=== PATIENT | female | born 1955 | race Caucasian/White ===

== ENCOUNTER 2020-12-23 16:36 | Outpatient (CLI) | payer MEDICARE, SELFPAY ==
--- NOTE | ~2020-12-23 | MM_ITS ---
EXAMINATION: MM screening cheyrl BI w kera HISTORY: Screening TECHNIQUE: Craniocaudal and mediolateral oblique 3-D tomosynthesis images were obtained and synthetic 2-D images were generated. CAD analysis was submitted and interpreted. COMPARISON: No prior mammogram is available for comparison at this institution. BREAST PARENCHYMAL COMPOSITION: Comparison to multiple prior studies sequentially, with oldest review ed study dated 06/24/2014. FINDINGS: There are developing asymmetries in the medial and lateral aspect of the right breast on CC view. The left breast is stable without evidence for malignancy. IMPRESSION: 1. Developing right breast asymmetries. 2. Additional mammographic views and possible breast ultrasound are recommended. BI-RADS Category 0: Incomplete: Needs additional imaging evaluation. Reviewed, dictated and finalized at location A. IMPRESSION: 1. Developing right breast asymmetries. 2. Additional mammographic views and possible breast ultrasound are recommended . BI-RADS Category 0: Incomplete: Needs additional imaging evaluation.
== END 2020-12-23 16:37 | disposition home or self-care (01) ==
PROVIDERS: PCP Internal Medicine; Visit Provider Internal Medicine
DX: Z12.31 Encounter for screening mammogram for malignant neoplasm of breast (principal); R92.8 Other abnormal and inconclusive findings on diagnostic imaging of breast
CPT/HCPCS: 77063; 77067

== ENCOUNTER 2021-01-03 12:15 | Outpatient (CLI) | payer MEDICARE, SELFPAY ==
--- NOTE | ~2021-01-03 | MMUS_ITS ---
EXAMINATION: MM diagnostic mammo unilat RT, US breast RT limited HISTORY: Right breast asymmetries on screening mammogram TECHNIQUE: Additional 3-D tomosynthesis images of the right breast were performed and synthetic 2-D i mages were generated. CAD analysis was submitted and interpreted. High resolution limited right breas t ultrasound was performed. COMPARISON: 12/23/2020, 09/24/2019, 09/12/2018 FINDINGS: MAMMOGRAPHIC FINDINGS: There is a return to baseline fibroglandular appearance with spot compression views of the right ethan st. No suspicious mass, calcification, or architectural distortion are identified. ULTRASOUND: There is no evidence of focal abnormal solid or cystic mass in the vicinity of the mammographic findi ngs in question. IMPRESSION: 1. No mammographic or sonographic evidence of malignancy. 2. Recommend routine screening mammography in one year. BI-RADS Category 1: Negative Reviewed, dictated and finalized at location A. IMPRESSION: 1. No mammographic or sonographic evidence of malignancy. 2. Recommend routine screening mammography in one year. BI-RADS Category 1: Negative
== END 2021-01-03 12:16 | disposition home or self-care (01) ==
LOC: ANHIMG 12:20
PROVIDERS: PCP Internal Medicine; Visit Provider Internal Medicine
DX: R92.8 Other abnormal and inconclusive findings on diagnostic imaging of breast (principal)
CPT/HCPCS: 76642; 77065

== ENCOUNTER 2022-02-28 09:37 | Outpatient (CLI) | payer MEDICARE, SELFPAY ==
--- NOTE | ~2022-02-28 | MM_ITS ---
EXAMINATION: MM screening cheryl BI w kera HISTORY: Screening mammogram TECHNIQUE: Craniocaudal and mediolateral oblique 3-D tomosynthesis images were obtained and synthetic 2-D images were generated. CAD analysis was submitted and interpreted. COMPARISON: 01/03/2021 diagnostic right mammogram and limited right breast ultrasound examination 12/23/2020, 09/24/2019 bilateral screening mammogram examinations BREAST PARENCHYMAL COMPOSITION: The breasts are heterogeneously dense, which may obscure small masses . FINDINGS: There is no evidence of suspicious mass, calcification, or architectural distortion to sugg est malignancy in either breast. There has been no suspicious interval change. IMPRESSION: 1. No mammographic evidence of malignancy. 2. Recommend routine screening mammography in one year. BI-RADS Category 1: Negative Reviewed, dictated and finalized at location A.
--- NOTE | ~2022-02-28 | DEXA_ITS ---
Bone Density Report Name: WILLIAM ISAACS Age: 67 Sex: Female Ethnicity: White Date of : 1955 Indication: osteopenia; prior fracture; postmenopausal Referring Provider: VICENTE, ALEKSANDAR Meléndez Study: Bone densitometry was performed. Exam Date: February 28, 2022 Accession number: [id number] Bone Density: Region BMD T-score Z-score Classification AP Spine(L1-L4) 0.937 -1.0 0.9 Normal Femoral Neck (Left) 0.675 -1.6 0.1 Osteopenia Total Hip (Left) 0.841 -0.8 0.5 Normal Femoral Neck (Right) 0.686 -1.5 0.2 Osteopenia Total Hip (Right) 0.832 -0.9 0.4 Normal Total Hip Mean 0.837 -0.9 0.5 Normal World Health Organization criteria for BMD impression classify patients as: Normal (T-score at or above -1.0), Osteopenia (T-score between -1.0 and -2.5), or Osteoporosis (T-score at or below -2.5). 10-year Fracture Risk(1): Major Osteoporotic Fracture 15% Hip Fracture 1.8% Reported Risk Factors: [place] (), Neck BMD=0.675, BMI=27.3, previous fracture (1) FRAX(R) Version 3.08. Fracture probability calculated for an untreated patient. Fracture probability may be lower if the patient has received treatment. Previous Exams: Region Exam Age BMD T-score BMD Change BMD Change Date g/cm2 vs Baseline vs Previous AP Spine (L1-L4) 02/28/2022 67 0.937 -1.0 0.019 (2.1%) 0.019 (2.1%) 09/12/2018 63 0.918 -1.2 Total Hip(Left) 02/28/2022 67 0.841 -0.8 0.008 (0.9%) 0.008 (0.9%) 09/12/2018 63 0.833 -0.9 Total Hip(Right) 02/28/2022 67 0.832 -0.9 -0.005 (-0.6%) -0.005 (-0.6%) 09/12/2018 63 0.838 -0.9 *Denotes significance at 95% confidence level, LSC for AP Spine = 0.022 g/cm2, LSC for Total Hip = 0.027 g/cm2 Clinical Information Provided by Patient: Has had a low trauma fracture Has used the following medications: Vitamin D, Calcium Patient maximum height was 60.5 Menopause Age: 50 Onset of menses at age 12 Number of children 2 Impression: The patient has low bone mass, based on the Left Femoral Neck T-score. The patient has an estimated ten-year risk of hip fracture of 1.8% and an estimated ten-year risk of major fracture of 15%, based on the WHO FRAX algorithm. The patient has risk factors, including: previous fracture. No significant bone loss was observed. Discussion: BONE DENSITY IS LOW AT ONE OR MORE SKELETAL SITES. This patient's lowest T-score is low at one or more skeletal sites. It meets the World H
== END 2022-02-28 09:38 | disposition home or self-care (01) ==
PROVIDERS: PCP Internal Medicine; Visit Provider Internal Medicine
DX: Z12.31 Encounter for screening mammogram for malignant neoplasm of breast (principal); M85.88 Other specified disorders of bone density and structure, other site; M85.852 Other specified disorders of bone density and structure, left thigh; M85.851 Other specified disorders of bone density and structure, right thigh
CPT/HCPCS: 77063; 77067; 77080

== ENCOUNTER 2023-06-15 07:30 | Outpatient (CLI) | payer MEDICARE, SELFPAY ==
--- NOTE | ~2023-06-15 | MM_ITS ---
EXAMINATION: MM screening cheryl BI w kera HISTORY: Screening mammogram TECHNIQUE: Craniocaudal and mediolateral oblique 3-D tomosynthesis images were obtained and synthetic 2-D images were generated. CAD analysis was submitted and interpreted. COMPARISON: 02/24/2022 bilateral screening mammogram 01/03/2021 diagnostic right mammogram and limited right breast ultrasound 12/23/2020, 09/24/2019 bilateral screening mammogram examinations BREAST PARENCHYMAL COMPOSITION: The breasts are heterogeneously dense, which may obscure small masses . FINDINGS: There is no evidence of suspicious mass, calcification, or architectural distortion to sugg est malignancy in either breast. There has been no suspicious interval change. IMPRESSION: 1. No mammographic evidence of malignancy. 2. Recommend routine screening mammography in one year. BI-RADS Category 1: Negative Reviewed, dictated and finalized at location A.
== END 2023-06-15 07:31 | disposition home or self-care (01) ==
PROVIDERS: PCP Internal Medicine
DX: Z12.31 Encounter for screening mammogram for malignant neoplasm of breast (principal)
CPT/HCPCS: 77063; 77067

== ENCOUNTER 2024-09-01 09:34 | Outpatient (CLI) | payer MEDICARE, SELFPAY ==
--- NOTE | ~2024-09-01 | MM_ITS ---
EXAMINATION: MM screening cheryl BI w kera HISTORY: Screening TECHNIQUE: Craniocaudal and mediolateral oblique 3-D tomosynthesis images were obtained and synthetic 2-D images were generated. CAD analysis was submitted and interpreted. COMPARISON: Comparison to multiple prior studies sequentially, with oldest reviewed study dated 03/2018. BREAST PARENCHYMAL COMPOSITION: Dense: The breasts are heterogeneously dense, which may obscure small masses FINDINGS: There is no evidence of suspicious mass, calcification, or architectural distortion to sugg est malignancy in either breast. There has been no suspicious interval change. IMPRESSION: 1. No mammographic evidence of malignancy. 2. Recommend routine screening mammography in one year. BI-RADS Category 1: Negative Reviewed, dictated and finalized at location B. 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
== END 2024-09-01 09:35 | disposition home or self-care (01) ==
LOC: ANHIMG 09:39
PROVIDERS: PCP Internal Medicine
DX: Z12.31 Encounter for screening mammogram for malignant neoplasm of breast (principal)
CPT/HCPCS: 77063; 77067

== ENCOUNTER 2025-07-14 10:36 | Outpatient (CLI) | payer MEDICARE, SELFPAY ==
--- NOTE | ~2025-07-14 | DEXA_ITS ---
Bone Density Report Name: WILLIAM ISAACS Age: 70 Sex: Female Ethnicity: White Date of : 1955 Indication: postmenopausal; screening for osteoporosis; Referring Provider: VICENTE, ALEKSANDAR Meléndez Study: Bone densitometry was performed. Exam Date: July 14, 2025 Accession number: [id number] Bone Density: Region BMD T-score Z-score Classification AP Spine(L1-L4) 0.932 -1.0 1.1 Normal Femoral Neck (Left) 0.661 -1.7 0.1 Osteopenia Total Hip (Left) 0.816 -1.0 0.5 Normal Femoral Neck (Right) 0.652 -1.8 0.0 Osteopenia Total Hip (Right) 0.831 -0.9 0.6 Normal Total Hip Mean 0.823 -1.0 0.6 Normal World Health Organization criteria for BMD impression classify patients as: Normal (T-score at or above -1.0), Osteopenia (T-score between -1.0 and -2.5), or Osteoporosis (T-score at or below -2.5). 10-year Fracture Risk(1): Major Osteoporotic Fracture 11% Hip Fracture 1.8% Reported Risk Factors: [place] (), Neck BMD=0.652, BMI=27.3 (1) FRAX(R) Version 3.08. Fracture probability calculated for an untreated patient. Fracture probability may be lower if the patient has received treatment. Previous Exams: Region Exam Age BMD T-score BMD Change BMD Change Date g/cm2 vs Baseline vs Previous AP Spine (L1-L4) 07/14/2025 70 0.932 -1.0 0.015 (1.6%) -0.005 (-0.5%) 02/28/2022 67 0.937 -1.0 0.019 (2.1%) 0.019 (2.1%) 09/12/2018 63 0.918 -1.2 Total Hip(Left) 07/14/2025 70 0.816 -1.0 -0.017 (-2.1%) -0.025 (-3.0%) 02/28/2022 67 0.841 -0.8 0.008 (0.9%) 0.008 (0.9%) 09/12/2018 63 0.833 -0.9 Total Hip(Right) 07/14/2025 70 0.831 -0.9 -0.007 (-0.8%) -0.002 (-0.2%) 02/28/2022 67 0.832 -0.9 -0.005 (-0.6%) -0.005 (-0.6%) 09/12/2018 63 0.838 -0.9 *Denotes significance at 95% confidence level, LSC for AP Spine = 0.022 g/cm2, LSC for Total Hip = 0.027 g/cm2 Impression: The patient has low bone mass, based on the Right Femoral Neck T-score. The patient has an estimated ten-year risk of hip fracture of 1.8% and an estimated ten-year risk of major fracture of 11%, based on the WHO FRAX algorithm. No significant bone loss was observed. Discussion: BONE DENSITY IS LOW AT ONE OR MORE SKELETAL SITES. This patient's lowest T-score is low at one or more skeletal sites. It meets the World Health Organization's (WHO) criteria for ?low bone mass? (T-score between -1.0 and -2.5). The patient's 10-year risk of fracture as calculated by FRAX is less than the threshold where pharmacological therapy is recommended by the National Osteoporosis Foundation (NOF). However, all treatment decisions require clinical judgment and consideration of individual patient factors, including patient preferences, comorbidities, previous drug use, risk factors not captured in the FRAX model (e.g., frailty, falls, vitamin D deficiency, increased bone turnover, interval significant decline in bone density) and possible under or overestimation of fracture risk by FRAX. The patient should follow a healthful lifestyle (good nutrition with adequate calcium and vitamin D, and appropriate weight-bearing exercise). Follow-Up: Consider repeating this study in 2 to 3 years to reassess this patient's status, or sooner if there is some new clinical indication. Reported by: CLOVER on 07/14/2025 11:17:00 AM. Reviewed, dictated and finalized at location A.
--- OUTSIDE RECORDS SUMMARY | 2025-07-14 11:37 | XMS_ITS | Clinical Summary ---
Author Organization [facility] Address [address] [place] [address] Care Team Providers Care Correctional Security Officer Name Role Phone Brandin Torres MD Primary Care Provider [phone] Allergies Active Allergy Reactions Criticality Noted Date Comments Iodine Unknown 09/23/2022 Molds & Smuts Rash,Swelling Low 09/23/2022 Reaction: swelling, rash, Nitrofurantoin Unknown 09/23/2022 Patient states hands and feet went numb Shellfish-Derived Products Unknown 2 Sulfa Antibiotics Unknown 09/23/2022 Medications hydroCHLOROthia zide (HYDRODIURIL) 25 MG tablet Take 1 tablet by mouth daily. 08/14/2022 Active metoprolol succinate ER (TOPROL-XL) 50 MG 24 hr tablet Take 1 tablet by mouth daily. 03/05/2012 Active valACYclovir (VALTREX) 500 MG tablet Take 500 mg by mouth 2 (two) times daily. Active omeprazole (PRILOSEC) 20 MG capsule Take 20 mg by mouth daily. Active traZODone (DESYREL) 50 MG tablet Take 25 mg by mouth nightly at bedtime. Active B complex-C Cap capsule Take 1 capsule by mouth daily. Active Pyridoxine HCl (B-6) 100 MG Tab Take 100 mg by mouth daily. Active vitamin D3, cholecalciferol , 1000 UNIT Tab tablet Take 1,000 Units by mouth daily. Active [place]-3 Fatty Acids (FISH OIL) 500 MG capsule Take 1,000 mg by mouth daily. Active vitamin C (ASCORBIC ACID) 500 MG tablet Take 500 mg by mouth daily. Active vitamin E 180 MG (400 UNIT) capsule Take 400 Units by mouth daily. Active calcium carb-cholecalci ferol (CALTRATE 600+D) 600-20 MG-MCG tablet Take 1 tablet by mouth daily. Active biotin 300 MCG Tab Take by mouth daily. Active Social History Tobacco Use Types Packs/Day Years Used Date Smoking Tobacco: Never Smokeless Tobacco: Never Tobacco Cessation:Counseling Given: Not Answered Alcohol Use Standard Drinks/Week Comments Not Currently 0 (1 standard drink = 0.6 oz pur e alcohol) Comments Unknown Sex and Gender Information Value Date Recorded Sex Assigned at Not on file Legal Sex Female 7:27 PM CDT Gender Identity Not on file Sexual Orientation Not on file Last Filed Vital Signs Vital Sign Reading Time Taken Comments Blood Pressure 143/87 09/23/2022 9:22 PM HOUSE SUPERVISOR Pulse 73 09/23/2022 9:22 PM HOUSE SUPERVISOR Temperature 36.9 C (98.4 F) 09/23/2022 6:25 PM HOUSE SUPERVISOR Respiratory Rate 16 09/23/2022 9:22 PM HOUSE SUPERVISOR Oxygen Saturation 97% 09/23/2022 9:22 PM HOUSE SUPERVISOR Inhaled Oxygen Concentration - - Weight 63.5 kg (140 lb) 09/23/2022 2:28 PM HOUSE SUPERVISOR Height 152.4 cm (5') 09/23/2022 2:28 PM HOUSE SUPERVISOR Body Mass Index 27.34 09/23/2022 2:28 PM HOUSE SUPERVISOR Plan of Treatment Health Maintenance Due Date Last Done Comments Colorectal Cancer Screening Colonoscopy (10 Years) 1955 Hepatitis C 1973 Mammogram Screening 1995 Annual Medicare Wellness Visit 02/04/2020 Dexa Scan (General) 02/04/2020 DTaP, Tdap and Td Vaccines (4 - Td or Tdap) 05/08/2025 05/08/2015, 10/08/2010, 10/08/2009 COVID-19 Vaccine ( season) 2025 Influenza Adult (#1) 2025 06/19/2020, 08/08/2019, 08/04/2019, Additional history exists RSV Immunization or 60+ Years (1 - 1-dose 75+ series) 2030 Zoster Vaccines Completed 11/08/2020, 06/08, 10/25/2016 Pneumococcal Vaccine: 50+ Years Completed 02/28/2022, 10/05/2020 Meningococcal B Vaccine Aged Out No l onger eligible based on patient's age to complete this topic Meningococcal Vaccine Aged Out No werner nanci eligible based on patient's age to complete this topic RSV Immunizations Under 20 Months Aged Out No longer eligible based on patient's age to complete this topic Insurance [employer] MEDICARE Care Teams Correctional Security Officer Relationship Specialty Start Date End Date Brandin Torres MD [address] [place] [address] PCP - General INTERNAL MEDICINE 09/23/22
--- OUTSIDE RECORDS SUMMARY | 2025-07-14 11:37 | XMS_ITS | Clinical Summary ---
Author Organization [facility] Address [address] [place] [address] Care Team Providers Care Direct Sales Professional Name Role Phone Morro Cisneros MD Primary Care Provider [phone] Sophie Delaney MD Unavailable [phone] Source Comments [facility],non-owned Affiliates and Associated Physician Practices is amultiple site organization consisting of ambulatory clinics and hospital sitesin [place], [place], [place] and [place]. This disclosure is being madepursuant to the Care Everywhere program and may not contain all information available regarding this patient. Last updated 18.[facility] Allergies Active Allergy Reactions Criticality Noted Date Comments Aminobenzoic Acid Rash Low 11/12/2013 Shellfish 11/12/2013 Sulfa Drugs 11/12/2013 Pt's mother had severe allergy, pt does not want to take anything with sulfa Medications * Be aware that medications may not be up to date on this document. Alwaysverify current medications with the patient. metoprolol succinate XL 24hr (TOPROL XL) 50 MG tablet Take 1 Tab by mouth once daily. 90 Tab 3 11/12/2013 Active valACYclovir (VALTREX) 500 MG tablet Take 1 Tab by mouth once daily. 90 Tab 3 11/12/2013 Active omeprazole (PRILOSEC) 20 MG capsule Take 20 mg by mouth daily before breakfast. Active hydrochlorothiaz beckie (HYDRODIURIL) 25 MG tablet TAKE 1 TABLET DAILY 90 Tab 3 12/05/2013 Active Active Problems Patient Care Coordination No te Formatting of this note migh t be different from the original. [facility] [address] [place], [place] [address] Problem Noted Date Diagnosed Date HTN (hypertension) Overview (11/12/2013): BP well controlled-130/80s, compliant with meds, lost 22 lbs on weight watchers Assessment & Plan (11/12/2013 1:47 PM DOULA): Continue current meds, may be able to decrease with further weight loss GERD (gastroesophageal reflux disease) Overview (11/12/2013): Doing well with omeprazole and weight loss. No dysphagia. Assessment & Plan (11/12/2013 1:48 PM DOULA): Try decreasing to qod as this may help with osteopenia. Osteopenia Overview (11/12/2013): Prior BMD, exercising Assessment & Plan (11/12/2013 1:49 PM DOULA): Cont ca, increase exercise to 5 times weekly Family History Medical History Relation Name Comments Cancer Mother uterus Cancer Other colon Diabetes Other Hypertension Other Cancer Sister uterus Relation Name Status Comments Mother Other Sister Social History Tobacco Use Types Packs/Day Years Used Date Smoking Tobacco: Never Smokeless Tobacco: Never Alcohol Use Standard Drinks/Week Comments Yes 0 (1 standard drink = 0.6 oz pur e alcohol) <2 drink/week Comments No Sex and Gender Information Value Date Recorded Sex Assigned at Not on file Legal Sex Female 10:45 AM DOULA Gender Identity Not on file Sexual Orientation Not on file Last Filed Vital Signs Vital Sign Reading Time Taken Comments Blood Pressure 130/84 11/12/2013 1:32 PM DOULA Pulse 60 11/12/2013 12:59 PM DOULA Temperature - - Respiratory Rate - - Oxygen Saturation - - Inhaled Oxygen Concentration - - Weight 56.7 kg (125 lb) 11/12/2013 12:59 PM DOULA Height 154.9 cm (5' 1) 11/12/2013 12:59 PM DOULA Body Mass Index 23.62 11/12/2013 12:59 PM DOULA Plan of Treatment Health Maintenance Due Date Last Done Comments BONE DENSITY TESTING 1955 COLOGUARD (AGES 45-75) - COL ON CA SCREENING [address] COLONOGRAPHY - COLON CA SCREENING 1955 FIT - COLON CA SCREENING 1955 FLEX SIG - COLON CA SCREENING 1955 LIPID TESTING 1955 HEPATITIS C SCREENING 01/29/1973 DTAP/TDAP/TD VACCINES (1 - Tdap) 1974 PNEUMOCOCCAL VACCINE 50+ (1 of 1 - PCV) 2005 ZOSTER VACCINE (1 of 2) 2005 MAMMOGRAM 05/22/2015 05/22/2013, 05/22/2013 COLONOSCOPY - COLON CA SCREENING 10/08/2017 10/08/2007 (Previously completed) Colorectal Cancer Screening 10/08/2017 DEPRESSION SCREENING 10/08/2024 COVID-19 VACCINE ( - 2023-2 5 season) 2025 INFLUENZA VACCINE (#1) 2025 Respiratory Syncytial Virus (RSV) Vaccine Pt: or over 60 yrs (1 - 1-dose 75+ series) 2030 HEPATITIS B VACCINE Aged Out No longe r eligible based on patient's age to complete this topic HIB VACCINE Aged Out No longer eligi ble based on patient's age to complete this topic HPV VACCINE Aged Out No longer eligi ble based on patient's age to complete this topic MENINGOCOCCAL (Group B) VACCINE SHARED DECISION-MAKING Aged Out No longer eligible based on patient's age to complete this topic MENINGOCOCCAL GROUPS A/C/Y/W VACCINE Aged Out No longer eligible b ased on patient's age to complete this topic Goals Goal Patient Goal Type Associated Problems Recent Progress Patient-Stated? Author Exercise 5X per week (30 min per time) Exercise No Morro Cisneros MD Procedures Procedure Name Priority Date/Time Associated Diagnosis Comments MAMMOGRAPHY ORDER Routine 05/22/2013 from Last 3 Months or Most Recently Relevant to Health Maintenance Results * MAMMOGRAPHY ORDER (05/22/2013) Anatomical Region Laterality Modality Other Morro Cisneros MD MAMMO ORDERABLES Final Resul t from Last 3 Months or Most Recently Relevant to Health Maintenance Insurance ANTHEM ANTHEM Care Teams Direct Sales Professional Relationship Specialty Start Date End Date Morro Cisneros MD [address] [place] [address] PCP - General Internal Medicine 11/12/13 Sophie Delaney MD [address] [place] [address] [employer] Ob[facility]etrics [facility] Gyne[facility] 11/12/13
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
--- OUTSIDE RECORDS SUMMARY | 2025-07-14 11:37 | XMS_ITS | Encounter Summary ---
Author Organization [facility] Address [address] [place] [address] Care Team Providers Care Cloth Mercerizing Supervisor Name Role Phone Morro Cisneros MD Primary Care Provider [phone] Sophie Delaney MD Unavailable [phone] Encounter Details Date Type Department Care Team (Late st Contact Info) Description 03/13/2019 Lab Requisition [facility] [address] [facility] [address], [facility] [place] [address] Monica Spain MD [address] [facility] [address] [place] [address] Social History Tobacco Use Types Packs/Day Years Used Date Smoking Tobacco: Never Smokeless Tobacco: Never Alcohol Use Standard Drinks/Week Comments Yes 0 (1 standard drink = 0.6 oz pur e alcohol) <2 drink/week Comments No Sex and Gender Information Value Date Recorded Sex Assigned at Not on file 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 Author Exercise 5X per week (30 min per time) Exercise No Morro Cisneros MD documented as of this encounter Procedures Procedure Name Priority Date/Time Associated Diagnosis Comments DERMATOPATHOLOGY Routine 03/12/2019 12:0 0 AM CDT documented in this encounter Results * DERMATOPATHOLOGY (03/12/2019 12:00 AM CDT) Case Report Dermatopathology Report Case: [id number] Authorizing Provider: Monica Spain MD Collected: 03/12/2019 12:00 AM Pathologist: Herbert Jackson MD Received: 03/13/2019 09:06 AM Specimen: Skin, right deltoid 5:51 PM CDT DERMATOPATHOLOGY LABORATORY Final Diagnosis Specimen A. SKIN, right deltoid: BENIGN VERRUCOUS KERATOSIS, INFLAMED (L82.1) 5:51 PM CDT DERMATOPATHOLOGY LABORATORY at 1751 CDT Clinical History R/O SK, irregular color. 5:51 PM CDT DERMATOPATHOLOGY LABORATORY Gross Description Specimen A: Received is one formalin filled container labeled with the patient's name and designated right deltoid. The specimen consists of a shave measuring [id number]. Jar 0. 5:51 PM CDT DERMATOPATHOLOGY LABORATORY Microscopic Description Specimen A. SKIN, right deltoid: Sections show hyperkeratosis, papillomatosis, hypergranulosis, and acanthosis. Inflammatory cells are present within the dermis. These histological findings can be seen in a verruca vulgaris or a seborrheic keratosis. 5:51 PM CDT DERMATOPATHOLOGY LABORATORY Disclaimer An external and internal positive and negative controls are appropriate for the histochemical, immunohistochemical and immunofluorescence stain(s) in this case (if any), except where stated explicitly. The performance characteristics of the stain(s) cited in this report were developed and its performance characteristic determined by the Dermatopathology Laboratory at [facility], directed by Dr. Corina Jackson. These tests need not be, and therefore are not, approved by the [place] Food and Drug Administration. The tests are used for clinical purposes. Billing Codes Specimen Charges Stain Charges 61060 1 5:51 PM CDT DERMATOPATHOLOGY LABORATORY Embedded Images 5:51 PM CDT DERMATOPATHOLOGY LABORATORY Pathology/Cytolog y TISSUE SPECIMEN FROM SKIN / Unknown 03/12/2019 03/13/2019 9:06 AM CDT Monica Spain MD LAB - PATHOLOGY/CYTOLOGY OR DERABLES Final Result DERMATOPATHOLOGY LABORATORY [facility] - Department of Dermatology [address] [place] [address], [address] [place] [address], [facility] [phone] documented in this encounter Visit Diagnoses Not on filedocumented in this encounter Care Teams Cloth Mercerizing Supervisor Relationship Specialty Start Date End Date Morro Cisneros MD [address] [place] [address] PCP - General Internal Medicine 11/12/13 Sophie Delaney MD [address] [place] [address] Learning Consultant Obstetrics and Gynecology 11/12/13 documented as of this encounter
== END 2025-07-14 10:37 | disposition home or self-care (01) ==
LOC: ANHFOHIMG 10:37
PROVIDERS: PCP Internal Medicine; Visit Provider Internal Medicine
DX: M85.89 Other specified disorders of bone density and structure, multiple sites (principal); M85.852 Other specified disorders of bone density and structure, left thigh; M85.851 Other specified disorders of bone density and structure, right thigh
CPT/HCPCS: 77080